=== PATIENT | female | born 1975 | race Caucasian/White ===

== ENCOUNTER 2017-11-24 12:32 | Observation (INO) | payer OTHER ==
[~2017-11-24] VITALS: Ht 154.9 cm; Wt 136.0 kg
[2017-11-24 13:53] LABS: ABSOLUTE BASOPHIL COUNT 0 /CUMM (0.0-0.2); ABSOLUTE EOSINOPHIL COUNT 0.4 /CUMM (0.0-0.7); ABSOLUTE GRANULOCYTE CT 8.7 /CUMM (1.4-6.5); ABSOLUTE LYMPH COUNT 2.5 /CUMM (1.2-3.4); BASOPHIL % 0.4 % (0.0-2.0); EOSINOPHIL % 3.3 % (0-5); GRANULOCYTE % 68.3 % (42.2-75.2); HEMATOCRIT 34.1 % (37-47); MEAN CORPUSCULAR HGB 29.6 PG (27.0-31.0); MEAN CORPUSCULAR HGB CONC 33.3 G/DL (33.0-37.0); MEAN PLATELET VOLUME 8.7 FL (7.4-10.4); PLATELET COUNT 349 /CUMM (130-400); RBC DISTRIBUTION WIDTH 14.4 % (11.5-14.5); RED BLOOD CELL CT 3.84 /CUMM (4.20-5.40); WHITE BLOOD CELL COUNT 12.7 /CUMM (4.8-10.8)
--- NOTE | 2017-11-24 14:19 | RADIOLOGY REPORT ---
EXAMINATION: XR CHEST CLINICAL INFORMATION: Chest pain COMPARISON: None TECHNIQUE: 2 views of the chest were obtained. FINDINGS: There is subtle blunting of the left costophrenic angle on the lateral view. Lungs are well-expanded and clear however. No pneumothorax. Normal pulmonary vascularity. Cardiac silhouette is enlarged suggesting cardiomegaly and/or pericardial effusion. IMPRESSION: Possible small left pleural effusion. Lungs are clear however. Cardiac silhouette is enlarged suggesting cardiomegaly and/or pericardial effusion.
--- NOTE | 2017-11-24 14:32 | ED GENERAL ADULT ---
See Addendum History of Present Illness General Chief Complaint: Chest Pain Stated Complaint: CHEST PAIN, JAW PAIN Source: patient Exam Limitations: no limitations Vital Signs & Intake/Output Vital Signs & Intake/Output Vital Signs Date Time Temp Pulse Resp B/P B/P Pulse O2 O2 Flow FiO2 Mean Ox Delivery Rate 11/24 1742 98.6 70 20 119/65 98 Room Air 11/24 1503 98.5 76 20 131/70 99 Room Air 11/24 1238 98.2 80 18 129/77 96 Room Air Allergies Coded Allergies: clams (PROJECTILE VOMITING 11/24/17) erythromycin base (PER PT CAUSED SWELLING UNDER EYES PER PT 11/24/17) Reconcile Medications Albuterol Sulfate (Ventolin Hfa) 90 MCG HFA.AER.AD 2 PUF INH AD PRN ASTHMA ( Reported) Aspirin (Ecotrin*) 81 MG TABLET.DR 1 TAB PO ONCE CHEST PAIN (Reported) Cholecalciferol (Vitamin D3) (Vitamin D) (Unknown Strength) CAPSULE (Unknown Dose) PO DAILY SUPPLEMENT (Reported) Fluticasone/Salmeterol (Advair 250-50 Diskus) 250 MCG-50 MCG/DOSE BLST.W.DEV 1 PUF INH BID ASTHMA (Reported) Levonorgestrel (Mirena) 20 MCG/24 HOUR (5 YEARS) IUD HRT (Reported) Meloxicam 15 MG TABLET 1 TAB PO DAILY ARTHRITIS (Reported) Metformin HCl 500 MG TABLET 1 TAB PO BID PRE-DM (Reported) Triage Note: PT FROM HOME C/O ACID REFLUX?/CHEST PRESSURE SINCE 2029 LAST NIGHT. PT STATES SHE LAST ATE DINNER AROUND 1929 LAST NIGHT AND THEN WENT TO [facility] AND EXPERIENCED CHEST DISCOMOFRT MIDSTERNAL RADIATING TO THROAT UP TO BILATERAL JAW. PT STATES "PRESSURE" IS 5/10 INTERMITTENT. PT STATES LEFT THUMB/PINK NUMBNESS/TINGLING THIS MORNING. +NAUSEA. PTS VSS. PT STATES HAD A CARDIAC CATH LAST YEAR WITH SYDNI AND EVERYTHING CAME BACK "NORMAL" PER PT END RESULTS WEIGHT LOSS. Triage Nurses Notes Reviewed? yes : No Patient currently breastfeeds: No HPI: 42-year-old female presents with chest pain since last night. She reports squeezing chest pain in the middle of the chest. She reports the pain radiates to her shoulders. She reports no coronary artery disease history. The patient denies any family history. The patient reports that she had a cardiac cath within the last 18 months and it was negative. She had a cardiac cath because she was getting a workup to get bariatric surgery done at the stress test was abnormal. But the cardiac cath was normal. The patient denies diaphoresis, shortness of breath, history of DVT or PE. She has not had bariatric surgery done. Past History Travel History Traveled to [place] past 21 day No Medical History Any Pertinent Medical History? see below for history Musculoskeletal: ARTHRITIS Endocrine: PREDIABETIC Surgical History Surgical History: non-contributory Psychosocial History What is your primary language Serbian Tobacco Use: Quit >30 days ago Family History Hx Contributory? No Review of Systems Review of Systems Constitutional: Denies: chills, diaphoresis, fever. EENTM: Denies: blurred vision, double vision, visual changes. Respiratory: Denies: cough, hemoptysis, orthopnea. Cardiovascular: Reports: chest pain. Denies: edema, orthopena, palpitations. GI: Denies: abdominal pain, bloating, constipation. Genitourinary: Denies: discharge, dysuria, frequency. Musculoskeletal: Denies: back pain, gout, joint pain. Skin: Denies: cysts, change in skin color, change in hair/nails. Neurological/Psychological: Denies: anxiety, ataxia, cognitive dysfunction, confusion. Physical Exam Physical Exam General Appearance: well developed/nourished, no apparent distress, alert, awake Head: atraumatic, normal appearance Eyes: Bilateral: PERRL, EOMI, pale conjunctivae. Ears, Nose, Throat: normal pharynx, normal ENT inspection Neck: normal inspection Respiratory: normal breath sounds, chest non-tender, no respiratory distress Cardiovascular: regular rate/rhythm Peripheral Pulses: 4+ radial (R), 4+ radial (L), 4+ dorsalis pedis (R), 4+ dorsalis pedis (L) Gastrointestinal: normal bowel sounds, soft Back: normal inspection, normal range of motion Neurologic/Psych: no motor/sensory deficits, awake, alert, oriented x 3 Skin: intact, warm/dry Comments: Additional exam: Abdominal exam, slight epigastric tenderness without Rascon sign. Core Measures ACS in differential dx? Yes CVA/TIA Diagnosis: No Sepsis Present: No Sepsis Focused Exam Completed? No Progress Differential Diagnoses 42-year-old chest pain with the known negative cardiac cath. Get a medical workup, check a d-dimer and give a GI cocktail. Abdomen is soft and benign. Plan of Care: Orders Procedure Date/time Status Nothing by Mouth 11/25 B Active ED Holding Orders 11/24 1852 Active Admit to inpatient 11/24 1852 Active Code Status 11/24 1852 Active Patient Data 11/24 1850 Active Code Status 11/24 185 Complete TROPONIN LEVEL 11/24 1549 Complete EKG 11/24 1549 Active Add-on Test (ER Only) 11/24 1431 Active Add-on Test (ER Only) 11/24 1427 Active LIPASE 11/24 1300 Complete D-DIMER 11/24 1300 Complete URINE 11/24 1238 Complete URINALYSIS 11/24 1238 Complete TROPONIN LEVEL 11/24 1238 Complete COMPREHENSIVE METABOLIC PANEL 11/24 1238 Complete CBC WITHOUT DIFFERENTIAL 11/24 1238 Complete EKG 11/24 1233 Active Laboratory Tests 11/24/17 1555: Troponin I < 0.01 11/24/17 1300: Anion Gap 12, Estimated GFR > 60, BUN/Creatinine Ratio 16.3, Glucose 86, Calcium 9.2, Total Bilirubin 0.4, AST 23, ALT 31, Alkaline Phosphatase 63, Troponin I < 0.01, Total Protein 7.0, Albumin 4.0, Globulin 3.0, Albumin/Globulin Ratio 1.3, Lipase 251, D-Dimer High Sensitivty 237, CBC w Diff NO MAN DIFF REQ, RBC 3.84 L , MCV 89.0, MCH 29.6, MCHC 33.3, RDW 14.4, MPV 8.7, Gran % 68.3, Lymphocytes % 19.9 L, Monocytes % 8.1, Eosinophils % 3.3, Basophils % 0.4, Absolute Granulocytes 8.7 H, Absolute Lymphocytes 2.5, Absolute Monocytes 1.0 H, Absolute Eosinophils 0.4, Absolute Basophils 0, Urine Color YEL, Urine Clarity CLEAR, Urine pH 6.0, Ur Specific [place] 1.025, Urine Protein NEG, Urine Ketones NEG, Urine Nitrite NEG, Urine Bilirubin NEG, Urine Urobilinogen 0.2, Ur Leukocyte Esterase NEG, Ur Microscopic EXAM NOT REQUIRED, Urine Hemoglobin NEG, Urine Glucose NEG, Urine Test NEGATIVE Initial ED EKG: see below Comments: EKG: Sinus, rate of 80. Normal axis. Normal intervals. No acute ST-T changes. No previous EKG for comparison. 1442: Patient doing well. Pain somewhat improved. We will also get an ultrasound because of the mild epigastric pain that she has. Pending lipase. First troponin negative. 1613 repeat EKG: Sinus, are 72. Normal axis. Normal intervals. No acute ST-T changes. No significant change. Patient requesting something for pain. We will give her pain medication. The patient has negative d-dimer, presentation consistent with PE. Pulses in all 4 extremities on presentation consistent with dissection. Pending ultrasound report. Labs benign. 185 pain not well controlled. Given that the patient has biliary colic we consulted surgery. The surgeon has decided to admit and operate on the patient. The patient has no acute cholecystitis. Departure Departure Time of Disposition: 1853 Disposition: STILL A PATIENT Condition: Stable Clinical Impression Primary Impression: Biliary colic Referrals: Misty ZAVALA,Abigail Guerin (PCP/Family) Departure Forms: Customer Survey General Discharge Information Critical Care Note Critical Care Note Critical Care Time: non-applicable
--- NOTE | 2017-11-24 16:21 | ULTRASOUND REPORT ---
EXAMINATION: US ABDOMEN LIMITED CLINICAL INFORMATION: Epigastric pain. COMPARISON: None TECHNIQUE: Real-time imaging of the right upper quadrant abdominal viscera. FINDINGS: PANCREAS: The pancreas is echogenic. The head and body of pancreas are normal. The tail is obscured by bowel gas. LIVER: Normal. The liver demonstrates normal size, contour and echogenicity. No focal lesion or intrahepatic biliary duct dilatation. GALLBLADDER: The gallbladder contains multiple nonmobile gallstones. The gallbladder wall measures 2 mm in thickness without significant gallbladder wall thickening or pericholecystic fluid. Tenderness was elicited over the gallbladder during the examination. COMMON BILE DUCT: The common bile duct is mildly dilated measuring 0.7 cm in diameter. RIGHT KIDNEY: Normal. No hydronephrosis. No renal calculi or focal parenchymal lesions. The kidney measures 10.9 cm in maximum dimension. FREE FLUID: None. IMPRESSION: Multiple gallbladder calculi with limited mobility of the gallstones and focal tenderness. The findings are suggestive of cholecystitis in the proper clinical context. There is no associated gallbladder wall thickening or pericholecystic fluid at this time. Mild dilatation of the extrahepatic biliary system.
[2017-11-24] MEDS ORDERED: METFORMIN HCL500 M3 PO (18:01)
[2017-11-24] MEDS ORDERED: MELOXICAM15 M1 PO (18:01)
[2017-11-24] MEDS ORDERED: VITAMIN D2000 UNIT PO (18:01)
[2017-11-24] MEDS ORDERED: MIRENA1 EACH (18:02)
[2017-11-24] MEDS ORDERED: VENTOLIN HFA18 GM INH (18:02)
[2017-11-24] MEDS ORDERED: ADVAIR 250-501 EACH INH (18:02)
[2017-11-24] MEDS ORDERED: ASPIRIN EC81 M1 PO (18:04)
--- NOTE | 2017-11-24 20:52 | History & Physical ---
Bienvenido Watkins 11/24/172040: General Information and HPI History of Present Illness: This is a 42 y/o F w/ PMHx of DM on metformin, asthma, and morbid obesity that presents to [place] ED with 1 day history of epigastric and right upper quadrant pain. Patient states she was in her usual state of good health until yesterday afternoon around 8Pm she had a acute onset of epigastric pain. This pain lasted a short amount a time, went away, and return soon after. This was then followed by nausea without vomiting. Patient proceded to go to bed and again awoke this morning with severe abdominal pain and nausea. This worsend and became constant in nature without any alleviating factors. She denies ever having similar pain in the past. Of note, patients last meal was yesterday afternoon and she is having regular bowel movements. The pain continues to the point that she came to the ED for further evaluation. In the ED the patient is in NAD. Vitals are WNL. Labs significant for WBC of 12.5, normal LFts and bili. US was obtained and showed multiple non-mobile stones without evidence of gallbladder wall thickening or fluid. Radiology read states "cholecystitis if clinical picture fits". Therefore, a surgery consult ( Dr. Arce) was obtained. Allergies/Medications Allergies: Coded Allergies: clams (PROJECTILE VOMITING 11/24/17) erythromycin base (PER PT CAUSED SWELLING UNDER EYES PER PT 11/24/17) Home Med list Albuterol Sulfate (Ventolin Hfa) 90 MCG HFA.AER.AD 2 PUF INH AD PRN ASTHMA ( Reported) Aspirin (Ecotrin*) 81 MG TABLET.DR 1 TAB PO ONCE CHEST PAIN (Reported) Cholecalciferol (Vitamin D3) (Vitamin D) (Unknown Strength) CAPSULE (Unknown Dose) PO DAILY SUPPLEMENT (Reported) Fluticasone/Salmeterol (Advair 250-50 Diskus) 250 MCG-50 MCG/DOSE BLST.W.DEV 1 PUF INH BID ASTHMA (Reported) Levonorgestrel (Mirena) 20 MCG/24 HOUR (5 YEARS) IUD HRT (Reported) Meloxicam 15 MG TABLET 1 TAB PO DAILY ARTHRITIS (Reported) Metformin HCl 500 MG TABLET 1 TAB PO BID PRE-DM (Reported) Past History Travel History Traveled to [place] past 21 day No Medical History Musculoskeletal: ARTHRITIS Endocrine: PREDIABETIC Surgical History Surgical History: non-contributory Review of Systems Review of Systems Constitutional: Reports: no symptoms. Exam & Diagnostic Data Last 24 Hrs of Vital Signs/I&O Vital Signs Date Time Temp Pulse Resp B/P B/P Pulse O2 O2 Flow FiO2 Mean Ox Delivery Rate 11/24 1742 98.6 70 20 119/65 98 Room Air 11/24 1545 Room Air 11/24 1503 98.5 76 20 131/70 99 Room Air 11/24 1238 98.2 80 18 129/77 96 Room Air Intake & Output 11/24 1600 11/24 0800 11/24 0000 Intake Total Output Total Balance Patient 300 lb Weight Weight Reported by Patient Measurement Method Physical Exam General Appearance Alert, Oriented X3 HEENT Atraumatic Neck Supple Cardiovascular Regular Rate, Normal S1, Normal S2 Lungs Clear to Auscultation Abdomen Obese abdomen, tender to palpation in ruq and epigastric region, BS+, no guarding/distention Neurological Normal Speech, Cranial Nerves 3-12 NL Extremities No Edema Vascular Normal Pulses Assessment/Plan Assessment: This is a 42 y/o F w/ PMHx of DM on metformin, asthma, and morbid obesity that presents to [place] ED with 1 day history of epigastric and right upper quadrant pain found to have multiple stones of ultrasound. Patient will be admited to Dr. Arce for possible lap choly tomorrow. *Patient and plan discussed with Dr. Arce. He is in agreement of the following - admit for obs - NPO after midnight for possible OR tomrrow - IVF - pain meds - Zofran - heparin sc As Ranked By This Provider Problem List: 1. Biliary colic Core Measures/Misc (01/13) Acute Coronary Syndrome ACS Diagnosis: No Congestive Heart Failure Congestive Heart Failure Diagnosis No Cerebrovascular Accident CVA/TIA Diagnosis: No VTE (View Protocol) VTE Risk Factors Age>40 No Mechanical VTE Prophylaxis d/t N/A MechProphylax Ordered No VTE Pharm Prophylaxis d/t NA PharmProphylax ordered Sepsis (View protocol) Sepsis Present: No If YES complete Sepsis Event Note If YES complete Sepsis Event Note Maico Arce DO 11/25/17 1736: Core Measures/Misc (01/13) Sepsis (View protocol) If YES complete Sepsis Event Note If YES complete Sepsis Event Note Attending MD Review Statement Attending Statement Attending MD Statement: examined this patient, discuss w/resident/PA/WIND [employer]URBINE MECHANIC, agreed w/resident/PA/WIND TURBINE MECHANIC, discussed with family, reviewed EMR data (avail), reviewed images Attending Assessment/Plan: Patient seen and examined, agree with above. Abdominal pain since saturday night , got more severe and constant, no N/V/F/C. AVSS. Abd-obese, RUQ/epigastric pain. Suzanne + cholelithiasis, impacted stones, + Rsacon's. Labs - WBC 12, LFTs ok. C/W Cholelithiasis/cholecystitis, NPO/IVF, IV Abx, and plan for Lap Jackelyn. D/W patient, family, and ED staff.
[2017-11-24 21:32] VITALS: BP 124/70
[2017-11-25 06:04] VITALS: BP 144/72
--- NOTE | 2017-11-25 07:55 | PN- General Surgery ---
See Addendum Subjective Subjective: Patient reports headache that began overnight, she has had similar headache, relates it to caffeine withdrawl. Denies chest pain, shortness of breath, difficulty breathing. Denies vomitting, has had intermittent nausea, responds to zofran. Denies diarrhea or bm, has passed flatus. Abdominal pain is mainly epigastric, responds to morphine but has not worsened or resolved. Objective Vital Signs and I&Os Vital Signs Date Time Temp Pulse Resp B/P B/P Pulse O2 O2 Flow FiO2 Mean Ox Delivery Rate 11/25 0604 98.0 58 20 144/72 98 Room Air 11/24 2132 98.3 87 20 124/70 98 Room Air 11/24 2053 98.3 76 16 121/67 97 Room Air 11/24 1742 98.6 70 20 119/65 98 Room Air 11/24 1545 Room Air 11/24 1503 98.5 76 20 131/70 99 Room Air 11/24 1238 98.2 80 18 129/77 96 Room Air Intake & Output 11/25 0800 11/25 0000 11/24 1600 11/24 0800 11/24 0000 11/23 1600 Intake Total 800 100 Output Total Balance 800 100 Intake, IV 800 100 Patient 300 lb 300 lb Weight Weight Reported by Patient Measurement Method Physical Exam: General: Alert and oriented x3, no acute distress Cardiac: RRR, s1s2 Pulm: C T A bilaterally, non-labored respiratory effort Abdomen: Obese, epigastric tenderness, non-distended, no guarding, no rebound tenderness. Extremities: Moves all extremities, neurovascular status intact. bilateral calves soft and non-tender Assessment/Plan Assessment/Plan This is a 42 year old female, h signficant for dm and asthma as well as morbid obesity. placed in observation status with abdominal discomfort related to acute cholecystitis -NPO, continue iv fluids -accucheck, npo insulin sliding scale -follow up am labs -add tylenol, iv (lfts not elevated) Dr. Arce to see Anticipate OR later today for laparoscopic cholecystectomy Core Measures Venous Thromboembolism VTE Risk Factors Age>40 No Mechanical VTE Prophylaxis d/t N/A MechProphylax Ordered No VTE Pharm Prophylaxis d/t NA PharmProphylax ordered
[2017-11-25 09:28] LABS: ABSOLUTE BASOPHIL COUNT 0 /CUMM (0.0-0.2); ABSOLUTE EOSINOPHIL COUNT 0.2 /CUMM (0.0-0.7); ABSOLUTE GRANULOCYTE CT 6.7 /CUMM (1.4-6.5); ABSOLUTE LYMPH COUNT 1.4 /CUMM (1.2-3.4); ABSOLUTE MONOCYTE COUNT 0.7 /CUMM (0.10-0.60); BASOPHIL % 0.2 % (0.0-2.0); EOSINOPHIL % 2.3 % (0-5); GRANULOCYTE % 74.4 % (42.2-75.2); HEMATOCRIT 31.9 % (37-47); MEAN CORPUSCULAR HGB 29.7 PG (27.0-31.0); MEAN CORPUSCULAR HGB CONC 33.4 G/DL (33.0-37.0); MEAN PLATELET VOLUME 8.8 FL (7.4-10.4); PLATELET COUNT 293 /CUMM (130-400); RBC DISTRIBUTION WIDTH 14.3 % (11.5-14.5); RED BLOOD CELL CT 3.58 /CUMM (4.20-5.40)
--- NOTE | 2017-11-25 17:48 | Operative Report ---
Operative/Inv Procedure Report Surgery Date: 11/25/17 Name of Procedure: Laparoscopic Cholecystectomy Pre-Operative Diagnosis: Cholelithiasis/Cholecystitis Post-Operative Diagnosis: Same Estimated Blood Loss: less than 50ml Surgeon/Mate First: Maico Arce DO Anesthesia: general endotracheal tube IV Fluids: 1500 cc Drains: None Specimens: Gallbladder Complications: None Condition: Stable Operative Indication: This is a 42-year-old female who presented to the emergency room with abdominal pain. After appropriate workup was completed the patient was diagnosed with cholelithiasis/cholecystitis. A laparoscopic possible open cholecystectomy was discussed in detail. All risks including but not limited to bleeding, infection , bile leak, and injury to surrounding duct/bowel were discussed in detail. The patient understood everything and decided to proceed. Operative/Procedure Note Note: The patient was brought to the operating room and placed on the operating room table in supine position. Venodyne stockings were placed and adequate general endotracheal anesthesia was obtained. The patient was prepped and draped in standard surgical fashion. We began the procedure by making a 2 cm transverse incision in the infraumbilical crease. The incision was carried down to the fascia, once the fascia was clearly visualized it was picked up between 2 brianne clamps. The fascia was divided in the midline and once we entered the peritoneum 2 stay 0 Vicryl sutures were placed on each side. A 12 mm blunt port was inserted and the abdominal cavity was insufflated to 15 mmHg. A 10 mm 30 laparoscope was introduced and upon initial examination we noted a lot of omental adhesions around the umbilicus, with some manipulation blunt adhesiolysis we were able to get a window into the right upper quadrant (no bowel was noted within the adhesions. We did note a distended gallbladder in the right upper quadrant. Accessory trochars were placed, 5 mm, 2 in the right upper quadrant (one in the midclavicular line and one in the anterior axillary line, both 2 fingerbreadths below the costal margin) and a 12 mm epigastric port. The gallbladder was grasped with the lateralmost trocar and retracted up over the liver. Using the other 2 accessory trocars the infundibulum was grasped and the peritoneum was lysed using blunt dissection and using hook electrocautery. The cystic duct and cystic artery were visualized. The common bile duct was visualized and it was away from our area of dissection. The cystic duct and artery were skeletonized and divided between clips, 3 clips to stay and one clip on the gallbladder side for the duct and 2 clips to stay and one clip on the gallbladder side for the artery. Due to a large fatty liver there was small crack in the liver near gallbladder from manipulation of the gallbladder and the bleeding was controlled using sirgicel. The gallbladder was dissected off the liver bed using hook electrocautery maintaining hemostasis. Prior to completely removing the gallbladder off the liver bed we examined the area of dissection no obvious bile leak or bleeding was noted, the clips appeared to be in good position. The gallbladder was completely detached from the liver bed. 10 mm Endobag was introduced through the epigastric trocar site. The gallbladder was placed in the bag and removed. The abdomen was reinsufflated. We examined our area of dissection. No obvious bile leak or bleeding was noted. The right upper quadrant was irrigated until clear. All ports were removed under direct visualization, no obvious bleeding was noted. The umbilical trocar site and the epigastric port were closed using 0 Vicryl suture. The skin was closed using 4-0 Monocryl. Steri-Strips and dressings were placed. The patient was successfully extubated and transferred to the recovery room in stable condition. The patient tolerated the procedure well with no complications. Findings: Distended gallbladder, + multiple stones various size, thick wall, fatty liver CC: Misty ZAVALA,Abigail Guerin
[2017-11-25 19:40] VITALS: BP 128/60
--- NOTE | 2017-11-25 19:57 | PN- General Surgery ---
Subjective Subjective: POC feeling ok, c/o gas pains and shoulder pain. karla liquids, hungry. no oob yet- wants to go for walk in [place]. +void. pain controlled. no n/v/cp/sob Objective Vital Signs and I&Os Vital Signs Date Time Temp Pulse Resp B/P B/P Pulse O2 O2 Flow FiO2 Mean Ox Delivery Rate 11/25 0604 98.0 58 20 144/72 98 Room Air 11/25 2131 98.3 87 20 124/70 98 Room Air 11/24 2052 98.3 76 16 121/67 97 Room Air Intake & Output 11/25 1600 11/25 0800 11/25 0000 11/24 1600 11/24 0800 11/24 0000 Intake Total 800 800 100 Output Total Balance 800 800 100 Intake, IV 800 800 100 Patient 300 lb 300 lb Weight Weight Reported by Patient Measurement Method Physical Exam: GEN- NAD CARD- S1S2 RRR PULM- CTAB ABD- incisions cdi, dressed. obese, soft, nt. EXT- calves soft nt, alps on bl Assessment/Plan Assessment/Plan 42F POD0 sp lap lucrecia, with gas pain and referred shoulder pain from insufflation, stable. P- prn pain meds added mylicon prn ada diet as tolerated riss, fs oob, ambulate dvt ppx dc planning Core Measures Venous Thromboembolism VTE Risk Factors Age>40 No Mechanical VTE Prophylaxis d/t N/A MechProphylax Ordered No VTE Pharm Prophylaxis d/t NA PharmProphylax ordered
[2017-11-25 21:32] VITALS: BP 122/80
[2017-11-26 06:27] VITALS: BP 138/72
[2017-11-26] MEDS ORDERED: PERCOCET 5-3251 EACH PO (07:58)
--- NOTE | 2017-11-26 08:02 | Patient Discharge Instructions ---
Discharge Instructions General Discharge Information You were seen/treated for: Symptomatic gallstones/acute cholecystitis You had these procedures: Laparoscopic cholecystectomy Watch for these problems: Worsening abdominal pain, nausea, vomiting, fever, redness or drainage from the surgical incisions Do not soak the wound: Yes No bath, but you may shower: Yes Other wound care: Change dressings in about 3 or 4 days, you may apply Band-Aids. Special Instructions: take pain medication as needed. Diet Continue normal diet: No Recommended Diet: Low Fat Activity Full Activity/No Limits: No Activity Self Limited: Yes Pounds, do NOT lift more than: 10 Other activity limits: No excessive physical activity until follow-up visit Acute Coronary Syndrome Inclusion Criteria At DC or during hospital stay patient has or had the following: ACS DIAGNOSIS No Discharge Core Measures Meds if any: Prescribed or Continued at Discharge Meds if any: NOT Prescribed or Continued at Discharge Congestive Heart Failure Inclusion Criteria At DC or during hospital stay patient has or had the following: CHF DIAGNOSIS No Discharge Core Measures Meds if any: Prescribed or Continued at Discharge Meds if any: NOT Prescribed or Continued at Discharge Cerebrovascular accident Inclusion Criteria At DC or during hospital stay patient has or had the following: CVA/TIA Diagnosis No Discharge Core Measures Meds if any: Prescribed or Continued at Discharge Meds if any: NOT Prescribed or Continued at Discharge Venous thromboembolism Inclusion Criteria VTE Diagnosis No VTE Type NONE VTE Confirmed by (Test) NONE Discharge Core Measures - Per Current guidelines, there needs to be overlap - treatment for the first 5 days of Warfarin therapy. - If discharged on Warfarin prior to 5 days of - overlap therapy, the patient will need to be - assessed for post discharge needs including - *Post discharge parental anticoagulation - *Warfarin and/or parental anticoagulation education - *Follow up date to check INR post discharge At least 5 days overlap therapy as Inpatient No Meds if any: Prescribed or Continued at Discharge Note: Overlap Therapy is Warfarin and Anticoagulant Meds if any: NOT Prescribed or Continued at Discharge
--- NOTE | 2017-11-26 08:04 | Surg Short-stay <48hrs Dis Sum ---
Visit Information Visit Dates Admission Date: 11/24/17 Discharge Date: 11/26/17 Surgical Short Stay DC Summary Admission Diagnosis: Cholelithiasis/cholecystitis Final Diagnosis: Same plus status post laparoscopic cholecystectomy Procedure(s): Laparoscopic cholecystectomy Summary/Significant Findings: Patient was admitted with symptomatic gallstones, will require laparoscopic cholecystectomy which went without complications. Her diet was advanced, laboratory values stabilized, vital signs stable, pain was minimal postoperatively, she is ambulatory and voiding and passing gas, she was discharged home in stable condition Condition at Discharge: Good Discharge Disposition: home or self care Discharge instructions provided to patient/family: Yes Post discharge follow-up plan: Follow-up in 10-14 days, low-fat diet, avoid heavy lifting or strenuous activity
--- NOTE | 2017-11-26 08:06 | PN- General Surgery ---
Subjective Subjective: Minimal pain right upper quadrant, no acute events overnight, walking, passing gas, tolerating diet, no complaints Objective Vital Signs and I&Os Vital Signs Date Time Temp Pulse Resp B/P B/P Pulse O2 O2 Flow FiO2 Mean Ox Delivery Rate 11/26 0627 97.5 67 22 138/72 94 Room Air 11/25 2132 98.3 93 20 122/80 96 Room Air 11/25 1940 98.2 71 18 128/60 92 Room Air Intake & Output 11/26 0000 11/25 1600 11/25 0811/25 0000 Intake Total 880 580 800 800 100 Output Total Balance 880 580 800 800 100 Intake, IV 400 100 800 800 100 Intake, Oral 480 480 Patient 300 lb Weight Physical Exam: Well-developed well-nourished no apparent distress. HEENT: Atraumatic, extraocular motion intact Neck: Supple, no lymphadenopathy Respiratory: No respiratory distress Abdomen: Incision sites clean dry and intact. Intimal tenderness in the right upper quadrant. Nondistended. Positive bowel sounds Extremities: No edema, no calf pain Neuro: Alert and oriented x3 Psych: Mood affect normal, normal memory normal judgment. Skin: Warm and dry, no rash on exposed skin Results Last 48 Hours of Labs: Laboratory Tests 11/26 11/25 11/24 0725 0830 1555 Chemistry Sodium (137 - 145 mmol/L) Pending 139 Potassium (3.5 - 5.1 mmol/L) Pending 4.2 Chloride (98 - 107 mmol/L) Pending 104 Carbon Dioxide (22 - 30 mmol/L) Pending 28 Anion Gap (5 - 16) Pending 8 BUN (7 - 17 mg/dL) Pending 11 Creatinine (0.5 - 1.0 mg/dL) Pending 0.7 Estimated GFR (>60 ml/min) > 60 BUN/Creatinine Ratio (7 - 25 %) Pending 15.7 Total Bilirubin Pending Direct Bilirubin Pending AST Pending ALT Pending Alkaline Phosphatase Pending Troponin I (< 0.11 ng/ml) < 0.01 Total Protein Pending Albumin Pending Hematology CBC w Diff Pending NO MAN DIFF REQ WBC (4.8 - 10.8 /CUMM) Pending 9.0 RBC (4.20 - 5.40 /CUMM) Pending 3.58 L Hgb (12.0 - 16.0 G/DL) Pending 10.6 L Hct (37 - 47 %) Pending 31.9 L MCV (81.0 - 99.0 FL) Pending 89.0 MCH (27.0 - 31.0 PG) Pending 29.7 MCHC (33.0 - 37.0 G/DL) Pending 33.4 RDW (11.5 - 14.5 %) Pending 14.3 Plt Count (130 - 400 /CUMM) Pending 293 MPV (7.4 - 10.4 FL) Pending 8.8 Gran % (42.2 - 75.2 %) 74.4 Lymphocytes % (20.5 - 51.1 %) 15.3 L Monocytes % (1.7 - 9.3 %) 7.8 Eosinophils % (0 - 5 %) 2.3 Basophils % (0.0 - 2.0 %) 0.2 Absolute Granulocytes (1.4 - 6.5 /CUMM) 6.7 H Absolute Lymphocytes (1.2 - 3.4 /CUMM) 1.4 Absolute Monocytes (0.10 - 0.60 /CUMM) 0.7 H Absolute Eosinophils (0.0 - 0.7 /CUMM) 0.2 Absolute Basophils (0.0 - 0.2 /CUMM) 0 07/29 1300 Chemistry Sodium (137 - 145 mmol/L) 143 Potassium (3.5 - 5.1 mmol/L) 3.8 Chloride (98 - 107 mmol/L) 104 Carbon Dioxide (22 - 30 mmol/L) 27 Anion Gap (5 - 16) 12 BUN (7 - 17 mg/dL) 13 Creatinine (0.5 - 1.0 mg/dL) 0.8 Estimated GFR (>60 ml/min) > 60 BUN/Creatinine Ratio (7 - 25 %) 16.3 Glucose (65 - 99 mg/dL) 86 Calcium (8.4 - 10.2 mg/dL) 9.2 Total Bilirubin (0.2 - 1.3 mg/dL) 0.4 AST (14 - 36 U/L) 23 ALT (9 - 52 U/L) 31 Alkaline Phosphatase (<127 U/L) 63 Troponin I (< 0.11 ng/ml) < 0.01 Total Protein (6.3 - 8.2 g/dL) 7.0 Albumin (3.5 - 5.0 g/dL) 4.0 Globulin (1.9 - 4.2 gm/dL) 3.0 Albumin/Globulin Ratio (1.1 - 2.2 %) 1.3 Lipase (23 - 300 U/L) 251 Coagulation D-Dimer High Sensitivty (0 - 243 ng/ml) 237 Hematology CBC w Diff NO MAN DIFF REQ WBC (4.8 - 10.8 /CUMM) 12.7 H RBC (4.20 - 5.40 /CUMM) 3.84 L Hgb (12.0 - 16.0 G/DL) 11.4 L Hct (37 - 47 %) 34.1 L MCV (81.0 - 99.0 FL) 89.0 MCH (27.0 - 31.0 PG) 29.6 MCHC (33.0 - 37.0 G/DL) 33.3 RDW (11.5 - 14.5 %) 14.4 Plt Count (130 - 400 /CUMM) 349 MPV (7.4 - 10.4 FL) 8.7 Gran % (42.2 - 75.2 %) 68.3 Lymphocytes % (20.5 - 51.1 %) 19.9 L Monocytes % (1.7 - 9.3 %) 8.1 Eosinophils % (0 - 5 %) 3.3 Basophils % (0.0 - 2.0 %) 0.4 Absolute Granulocytes (1.4 - 6.5 /CUMM) 8.7 H Absolute Lymphocytes (1.2 - 3.4 /CUMM) 2.5 Absolute Monocytes (0.10 - 0.60 /CUMM) 1.0 H Absolute Eosinophils (0.0 - 0.7 /CUMM) 0.4 Absolute Basophils (0.0 - 0.2 /CUMM) 0 Urines Urine Color (YEL,AMB,STR) YEL Urine Clarity (CLEAR) CLEAR Urine pH (5.0 - 8.0) 6.0 Ur Specific [place] (1.001 - 1.035) 1.025 Urine Protein (NEG,<30 MG/DL) NEG Urine Ketones (NEG) NEG Urine Nitrite (NEG) NEG Urine Bilirubin (NEG) NEG Urine Urobilinogen (0.1 - 1.0 EU/dl) 0.2 Ur Leukocyte Esterase (NEG) NEG Ur Microscopic EXAM NOT REQUIRED Urine Hemoglobin (NEG) NEG Urine Glucose (N MG/DL) NEG Urine Test NEGATIVE Assessment/Plan Assessment/Plan Postop day #1 status post arthroscopic cholecystectomy Low-fat diet Ambulate Pain medication as needed, tolerating Percocet Heparin subcu for DVT prophylaxis Perioperative antibiotics completed Follow a.m. labs, CBC, LFTs, chemistry panel If labs acceptable, patient may may be discharged home, discussed with patient and nursing staff Core Measures Venous Thromboembolism VTE Risk Factors Age>40 No Mechanical VTE Prophylaxis d/t N/A MechProphylax Ordered No VTE Pharm Prophylaxis d/t NA PharmProphylax ordered
[2017-11-26 08:55] LABS: ABSOLUTE BASOPHIL COUNT 0 /CUMM (0.0-0.2); ABSOLUTE EOSINOPHIL COUNT 0 /CUMM (0.0-0.7); ABSOLUTE MONOCYTE COUNT 0.4 /CUMM (0.10-0.60); BASOPHIL % 0 % (0.0-2.0); EOSINOPHIL % 0 % (0-5); HEMATOCRIT 31.5 % (37-47); RBC DISTRIBUTION WIDTH 14.4 % (11.5-14.5)
[2017-11-26 09:36] LABS: ABSOLUTE GRANULOCYTE CT 12.3 /CUMM (1.4-6.5); ABSOLUTE LYMPH COUNT 0.7 /CUMM (1.2-3.4); MEAN CORPUSCULAR HGB 30.1 PG (27.0-31.0); MEAN CORPUSCULAR HGB CONC 33.8 G/DL (33.0-37.0); MEAN CORPUSCULAR VOLUME 89.2 FL (81.0-99.0); MEAN PLATELET VOLUME 9.2 FL (7.4-10.4); PLATELET COUNT 289 /CUMM (130-400); RED BLOOD CELL CT 3.53 /CUMM (4.20-5.40)
[2017-11-26 09:48] LABS: WHITE BLOOD CELL COUNT 13.4 /CUMM (4.8-10.8)
[2017-11-26 13:23] LABS: GRANULOCYTE % 91.3 % (42.2-75.2)
== END 2017-11-26 12:03 ==
LOC: ERH 12:32 → 2NA 18:57 → ERHI 18:57 → ENRESERV 20:17 → ENTRNSPT 20:46 → EDTRNSPTSTS 20:53 → EDTRNSPT 21:18 → 2NA 21:24 → CMPTRNSPT 21:31 → ENTRNSPT 11-25 18:54 → EDTRNSPT 11-25 18:59 → EDTRNSPTSTS 11-25 18:59 → CMPTRNSPT 11-25 19:27 → ENPENDDIS 11-26 08:27 → ENTRNSPT 11-26 11:48 → EDTRNSPT 11-26 11:53 → EDTRNSPTSTS 11-26 11:53 → 2NA 11-26 12:03 → CMPTRNSPT 11-26 12:20
PROVIDERS: Physician Assistant Medical; Physician Assistant Surgical
DX: K80.10 Calculus of gallbladder with chronic cholecystitis without obstruction (principal); E66.01 Morbid (severe) obesity due to excess calories; E11.9 Type 2 diabetes mellitus without complications; Z79.84 Long term (current) use of oral hypoglycemic drugs; J45.909 Unspecified asthma, uncomplicated; R10.84 Generalized abdominal pain
CPT/HCPCS: 36415; 36592; 71046; 81003; 81025; 82436; 88304; 93005; 93010; 96372; 96374; 96375; 96376; G0378; J0131; J0690; J1644; J2405; J3490